=== PATIENT | male | born 1965 | race African-American/Black ===

== ENCOUNTER 2017-03-23 05:12 | Inpatient (IN) | payer SELFPAY ==
[~2017-03-23] VITALS: Ht 188 cm; Wt 103.8 kg
[2017-03-23 07:22] LABS: Basophils # (auto) 0 uL; Basophils % (auto) 0.1 % (0.0-2.0); CONDITION Y; Eosinophils # (auto) 0 uL; Eosinophils % (auto) 0.1 % (0.0-7.0); Hematocrit 43.5 % (41.0-53.0); Hemoglobin 14.7 g/dL (13.5-17.5); Lymphocytes % (auto) 13.7 % (10.0-50.0); Mean Corpuscular Hemoglobin 29.6 pg (28.0-32.0); Mean Corpuscular Hgb Conc. 33.8 g/dL (32.0-36.0); Mean Corpuscular Volume 87.6 fL (80.0-100.0); Mean Platelet Volume 8.9 fL (7.4-10.4); Monocytes # (auto) 0.2 uL; Monocytes % (auto) 2.6 % (0.0-12.0); Neutrophils # (auto) 6.4 uL; Neutrophils % (auto) 83.5 % (37.0-80.0); Platelet Count (auto) 294 10^3/uL (140-450); Red Cell Distribution Width 14.6 % (11.6-16.0); White Blood Cell 7.7 10^3/uL (4.4-10.8)
[2017-03-23 07:40] LABS: INR 0.98 (0.9-1.15); Partial Thromboplastin Time 23.4 sec (22.64-33.71); Prothrombin Time 10.7 sec (9.37-12.3)
[2017-03-23 07:49] LABS: Albumin 4.1 g/dL (3.4-5.0); Calcium 8.9 mg/dL (8.5-10.1)
[2017-03-23 08:09] LABS: Bilirubin, Total 0.5 mg/dL (0.2-1.0); Total Protein 7.9 g/dL (6.4-8.2)
[2017-03-23] MEDS ORDERED: SODIUM CHLORIDE 0.9% 1,000 ML IVB ONE (10:01)
[2017-03-23] MEDS ORDERED: ASPirin 81 mg TAB PO ONE ×2 (10:15→11:00)
[2017-03-23] MEDS ORDERED: NITROGLYCERIN 0.2MG/HR TOPICAL PATCH TD ONE (11:00)
[2017-03-23] MEDS ORDERED: MORPHINE SULF INJ 2 MG/ML SYRINGE 1ML IV PRN (11:00)
[2017-03-23] MEDS ORDERED: LORazepam 0.5 MG TAB PO PRN (11:00)
[2017-03-23] MEDS ORDERED: ENOXAPARIN SOD 80 MG/0.8ML SYRINGE SC SCH (11:00)
[2017-03-23] MEDS ORDERED: TEMAZEPAM 15 MG CAP PO PRN (11:00)
[2017-03-23] MEDS ORDERED: LACTULOSE 20Gm/30ML SOLN PO PRN (11:00)
[2017-03-23] MEDS ORDERED: MORPHINE SULFATE 4 MG/ML SYRG IV PRN (11:00)
[2017-03-23] MEDS ORDERED: PANTOPRAZOLE 40 MG TAB PO ONE (11:00)
[2017-03-23] MEDS ORDERED: HYDROcodone-ACET 5/325MG TAB PO PRN (11:00)
[2017-03-23] MEDS ORDERED: PROMETHAZINE HCL 25 MG/ML 1ML IV PRN (11:00)
[2017-03-23] MEDS ORDERED: NITROGLYCERIN 0.4 MG SL TAB SL PRN (11:00)
[2017-03-23] MEDS ORDERED: ACETAMINOPHEN 500 MG TAB PO PRN (11:00)
[2017-03-23] MEDS: SODIUM CHLORIDE 0.9% 1,000 ML IV SCH ×2 (11:45→18:51)
[2017-03-23] MEDS ORDERED: EPTIFIBATIDE INJ (2MG/ML) 10ML VIAL IV ONE (19:00)
[2017-03-23] MEDS ORDERED: LISINOPRIL 10 MG TAB PO ONE (19:15)
[2017-03-23] MEDS: EPTIFIBATIDE DRIP(0.75MG/ML) 100 ML IV SCH (19:52)
[2017-03-23 21:16] LABS: Urine Bilirubin Negative (Negative); Urine Blood Negative /uL (Negative); Urine Color Yellow (Yellow); Urine Glucose Normal (Normal); Urine Mucus FEW (None Seen); Urine Nitrite Negative (Negative); Urine RBC 4 /hpf (0 - 3); Urine Urobilinogen Normal (Negative); Urine pH 8.5 (5.0-8.0)
[2017-03-23 21:20] LABS: Urine Ketone 1+ (Negative)
[2017-03-23] MEDS: METOPROLOL TARTRATE 25 MG TAB PO SCH (22:00)
[2017-03-23] MEDS: ATORVASTATIN 20 MG TAB PO SCH (22:20)
[2017-03-23] MEDS ORDERED: ENOXAPARIN SOD 100 MG/1 ML SYRINGE SC SCH (23:00)
[2017-03-24] VITALS (73 sets, daily range): BP systolic 88–199; BP diastolic 28–99
[2017-03-24] MEDS: EPTIFIBATIDE DRIP(0.75MG/ML) 100 ML IV SCH ×3 (01:16→22:00)
[2017-03-24] MEDS: SODIUM CHLORIDE 0.9% 1,000 ML IV SCH ×2 (02:49→10:09)
[2017-03-24 04:03] LABS: Cholesterol 214 mg/dL (< 200); HDL Cholesterol 56 mg/dL (40-59); LDL Cholesterol 134 mg/dL (< 100); Triglycerides 170 mg/dL (< 150)
[2017-03-24] MEDS ORDERED: IOHEXOL 350 MG/ML 100ML IJ ONE (07:55)
[2017-03-24] MEDS ORDERED: LIDOCAINE 2%HCL (LOCAL ANESTH.) INJ 20ML MDV ONE (07:55)
[2017-03-24] MEDS ORDERED: fentaNYL CITRATE 100 MCG/2 ML VL ONE (08:49)
[2017-03-24] MEDS ORDERED: MIDAZOLAM HCL 1MG/1ML-2 ML VIAL ONE (08:49)
[2017-03-24] MEDS ORDERED: ANGIOMAX 250 MG VIAL IV ONE (08:49)
[2017-03-24] MEDS ORDERED: SODIUM CHL 0.9% 50 ML ONE (08:50)
[2017-03-24] MEDS: METOPROLOL TARTRATE 25 MG TAB PO SCH ×2 (10:08→22:20)
[2017-03-24] MEDS: ASPirin 81 mg TAB PO SCH (10:08)
[2017-03-24] MEDS: PANTOPRAZOLE 40 MG TAB PO SCH (10:08)
[2017-03-24] MEDS: NITROGLYCERIN 0.2MG/HR TOPICAL PATCH TD SCH (10:09)
[2017-03-24] MEDS: ATORVASTATIN 20 MG TAB PO SCH (22:20)
[2017-03-25] VITALS (60 sets, daily range): BP systolic 73–136; BP diastolic 35–77
[2017-03-25] MEDS: EPTIFIBATIDE DRIP(0.75MG/ML) 100 ML IV SCH (01:40)
[2017-03-25 05:17] LABS: Basophils # (auto) 0 uL; Basophils % (auto) 0.3 % (0.0-2.0); CONDITION Y; Eosinophils # (auto) 0 uL; Hematocrit 38.4 % (41.0-53.0); Lymphocytes # (auto) 1.3 uL; Lymphocytes % (auto) 9.6 % (10.0-50.0); Mean Corpuscular Hemoglobin 29.6 pg (28.0-32.0); Mean Corpuscular Volume 87.3 fL (80.0-100.0); Mean Platelet Volume 9.7 fL (7.4-10.4); Monocytes # (auto) 0.9 uL; Monocytes % (auto) 7.1 % (0.0-12.0); Neutrophils # (auto) 10.9 uL; Platelet Count (auto) 211 10^3/uL (140-450); Red Cell Distribution Width 14.6 % (11.6-16.0); White Blood Cell 13.2 10^3/uL (4.4-10.8)
[2017-03-25 05:33] LABS: Albumin 2.9 g/dL (3.4-5.0); Calcium 7.8 mg/dL (8.5-10.1); Potassium 3.9 mmol/L (3.5-5.1)
[2017-03-25 05:35] LABS: BUN/Creatinine Ratio 13.9; Magnesium 2.2 mg/dL (1.6-2.6)
[2017-03-25 05:38] LABS: Bilirubin, Total 1.2 mg/dL (0.2-1.0); Total Protein 6.6 g/dL (6.4-8.2)
[2017-03-25] MEDS: ASPirin 81 mg TAB PO SCH (09:36)
[2017-03-25] MEDS: PANTOPRAZOLE 40 MG TAB PO SCH (09:36)
[2017-03-25] MEDS: NITROGLYCERIN 0.2MG/HR TOPICAL PATCH TD SCH (09:36)
[2017-03-25] MEDS: METOPROLOL TARTRATE 25 MG TAB PO SCH ×2 (09:36→21:33)
[2017-03-25] MEDS ORDERED: ceFAZolin 1GM 2 GM in D5W 5% 50 ML IV ONE (12:45)
[2017-03-25] MEDS ORDERED: VANCOMYCIN 1GM/250ML D5W 250 ML IV ONE (12:45)
[2017-03-25] MEDS ORDERED: ACCU-CHEK COMFORT CURVE STRIP VI ONE (12:45)
[2017-03-25 15:41] LABS: Base Excess 3.1 mmol/L (-2.0-2.0); Blood 02Sat 90.6 % (96-100); Blood COHb 1.2 % (0.5-1.5); Blood MetHb 0.1 % (0.0-1.5); HCO3 24.6 mmol/L (22-26.0); HHb 9.3 % (0.0-5.0); MODE ROOM AIR; O2Hb 89.4 % (94.0-97.0); PCO2 28.8 mmHg (35.0-45.0); PCO2(T) 28.8 mmHg (35.0-45.0); PO2 54.9 mmHg (80.0-100.0); PO2(T) 54.9 mmHg (80.0-100.0); Sample Type Arterial; pH 7.549 (7.350-7.450)
[2017-03-25 19:48] LABS: Urine Bilirubin Negative (Negative); Urine Blood Negative /uL (Negative); Urine Color Yellow (Yellow); Urine Glucose Normal (Normal); Urine Ketone Negative (Negative); Urine Nitrite Negative (Negative); Urine RBC 1 /hpf (0 - 3); Urine Squamous Epithelial Cell FEW /hpf (<5)
[2017-03-25] MEDS ORDERED: MUPIROCIN 2% OINT 22GM TOP SCH (21:00)
[2017-03-25] MEDS: ATORVASTATIN 20 MG TAB PO SCH (21:33)
[2017-03-25] MEDS ORDERED: ASCORBIC ACID 500 MG TAB PO ONE (22:00)
[2017-03-26] VITALS (27 sets, daily range): BP systolic 85–119; BP diastolic 38–72
[2017-03-26] MEDS ORDERED: CHLORHEXIDINE 4% TOPICAL soln 118ML TOP ONE ×2 (02:00→09:00)
[2017-03-26 04:37] LABS: Basophils # (auto) 0 uL; Basophils % (auto) 0.3 % (0.0-2.0); CONDITION Y; Eosinophils # (auto) 0 uL; Eosinophils % (auto) 0.3 % (0.0-7.0); Hematocrit 36.3 % (41.0-53.0); Hemoglobin 12.4 g/dL (13.5-17.5); Lymphocytes # (auto) 1.3 uL; Lymphocytes % (auto) 12.7 % (10.0-50.0); Mean Corpuscular Hemoglobin 30.3 pg (28.0-32.0); Mean Corpuscular Hgb Conc. 34.3 g/dL (32.0-36.0); Mean Corpuscular Volume 88.4 fL (80.0-100.0); Mean Platelet Volume 9.5 fL (7.4-10.4); Monocytes # (auto) 0.8 uL; Monocytes % (auto) 8.1 % (0.0-12.0); Neutrophils # (auto) 7.8 uL; Neutrophils % (auto) 78.6 % (37.0-80.0); Platelet Count (auto) 186 10^3/uL (140-450); Red Cell Distribution Width 14.4 % (11.6-16.0); White Blood Cell 9.9 10^3/uL (4.4-10.8)
[2017-03-26] MEDS ORDERED: ceFAZolin 1GM 2 GM in D5W 5% 50 ML IV ONE (09:00)
[2017-03-26] MEDS ORDERED: CHLORHEXIDINE 0.12% ORAL rinse 473ML MT ONE ×2 (09:00→12:45)
[2017-03-26] MEDS ORDERED: ACCU-CHEK COMFORT CURVE STRIP VI ONE (09:00)
[2017-03-26] MEDS: NITROGLYCERIN 0.2MG/HR TOPICAL PATCH TD SCH (10:13)
[2017-03-26] MEDS: METOPROLOL TARTRATE 25 MG TAB PO SCH ×2 (10:13→21:35)
[2017-03-26] MEDS: PANTOPRAZOLE 40 MG TAB PO SCH (10:13)
[2017-03-26] MEDS: ASPirin 81 mg TAB PO SCH (10:13)
[2017-03-26 14:10] LABS: Allen Test Yes; Base Excess 0.6 mmol/L (-2.0-2.0); Blood 02Sat 91.4 % (96-100); Blood MetHb 0.2 % (0.0-1.5); HHb 8.5 % (0.0-5.0); MODE ROOM AIR; O2Hb 90.3 % (94.0-97.0); PCO2 30.2 mmHg (35.0-45.0); PCO2(T) 30.2 mmHg (35.0-45.0); PO2 58.4 mmHg (80.0-100.0); PO2(T) 58.4 mmHg (80.0-100.0); Sample Type Arterial; pH 7.499 (7.350-7.450)
[2017-03-26] MEDS: MUPIROCIN 2% OINT 22GM TOP SCH (21:00)
[2017-03-26] MEDS: ATORVASTATIN 20 MG TAB PO SCH (21:35)
[2017-03-26] MEDS ORDERED: ASCORBIC ACID 500 MG TAB PO ONE (22:00)
[2017-03-27] VITALS (54 sets, daily range): BP systolic 30–129; BP diastolic 12–72
[2017-03-27] MEDS ORDERED: CHLORHEXIDINE 0.12% ORAL rinse 473ML MT ONE ×2 (03:43→06:00)
[2017-03-27] MEDS ORDERED: CHLORHEXIDINE 4% TOPICAL soln 118ML TOP ONE ×2 (05:00→05:20)
[2017-03-27] MEDS ORDERED: ACCU-CHEK COMFORT CURVE STRIP VI ONE (07:00)
[2017-03-27] MEDS ORDERED: MIDAZOLAM HCL 1MG/1ML-2 ML VIAL ONE (09:39)
[2017-03-27] MEDS ORDERED: fentaNYL CITRATE 10 ML ONE (09:44)
[2017-03-27] MEDS ORDERED: LIDOCAINE 2%HCL (LOCAL ANESTH.) INJ 20ML MDV ONE (09:49)
[2017-03-27] MEDS ORDERED: ETOMIDATE (2MG/ML) 20ML VIAL IV ONE ×2 (09:49→11:12)
[2017-03-27] MEDS ORDERED: ALBUMIN 25% 300 ML IV ONE (09:55)
[2017-03-27] MEDS ORDERED: ceFAZolin 2 GM in D5W 5% 100 ML IV ONE (10:00)
[2017-03-27] MEDS: MUPIROCIN 2% OINT 22GM TOP SCH (10:00)
[2017-03-27] MEDS ORDERED: VANCOMYCIN 1GM/250ML D5W 250 ML IV ONE (10:00)
[2017-03-27] MEDS ORDERED: PLASMA-LYTE A pH7.4 4,000 ML INJ ONE (10:06)
[2017-03-27] MEDS ORDERED: SODIUM BICARBONATE 8.4% INJ 50ML SYRINGE IV ONE (11:00)
[2017-03-27] MEDS ORDERED: POTASSIUM CHL 2MEQ/ML 20ML IV ONE (11:00)
[2017-03-27] MEDS ORDERED: MANNITOL 20% SOLN 100 gm/500ml BAG IV ONE (11:00)
[2017-03-27] MEDS ORDERED: PHENYLEPHRINE HCL 10 MG/ML VL IV ONE (11:00)
[2017-03-27] MEDS ORDERED: MAGNESIUM SULF 50% 40 MEQ/10 ML VL IV ONE (11:00)
[2017-03-27] MEDS ORDERED: DEXAMETHASONE SODIUM PHOSP 120 MG/30ml VIAL IV ONE (11:00)
[2017-03-27] MEDS ORDERED: AMINOCAPROIC ACID 5 GM in SODIUM CHL 0.9% 250 ML IV ONE (11:00)
[2017-03-27] MEDS ORDERED: LIDOCAINE HCL 100 MG/5ML (2%) SYRG INJ IV ONE (11:00)
[2017-03-27] MEDS ORDERED: PHENYLEPHRINE INJ 20 MG in SODIUM CHL 0.9% 250 ML IV ONE (11:00)
[2017-03-27] MEDS ORDERED: AMINOCAPROIC ACID 10 GM in SODIUM CHL 0.9% 100 ML IV ONE (11:00)
[2017-03-27] MEDS ORDERED: InsuLIN R (HUMAN) 100 UNITS in SODIUM CHL 0.9% 99 ML IV ONE (11:00)
[2017-03-27] MEDS ORDERED: AMINOCAPROIC ACID 5 GM/20 ML VL IV ONE (11:00)
[2017-03-27] MEDS ORDERED: HEPARIN 30000 UNITS in SODIUM CHLORIDE 0.9% 1000 ML IV ONE (11:00)
[2017-03-27] MEDS ORDERED: EPINEPHrine HCL 4 MG in D5W 5% 250 ML IV ONE (11:00)
[2017-03-27] MEDS ORDERED: CALCIUM CHLOR(10%) 100MG/ML 10ML SYRINGE IV ONE (11:00)
[2017-03-27] MEDS ORDERED: VASOPRESSIN 50 UNITS in SODIUM CHL 0.9% 247.5 ML IV ONE (11:00)
[2017-03-27] MEDS ORDERED: ADENOSINE 6 MG/2 ML INJ IV ONE (11:00)
[2017-03-27] MEDS ORDERED: HEPARIN 1,000 UNITS/ml 1ML VIAL ONE (11:22)
[2017-03-27] MEDS ORDERED: PAPAVERINE HCL 60 MG/2 ML 2ML VIAL ONE (11:22)
[2017-03-27] MEDS ORDERED: ceFAZolin 1GM VL ONE (11:22)
[2017-03-27] MEDS ORDERED: NEOMYCIN-BACITRACIN-POLYM 15GM TOP OINT TOP ONE (11:22)
[2017-03-27] MEDS ORDERED: ROCURONIUM 10MG/ML 10ML VIAL IV ONE (12:29)
[2017-03-27] MEDS ORDERED: ePHEDrine SULFATE 50 MG/ML AMP ONE (13:42)
[2017-03-27 13:52] LABS: Base Excess -3.8 mmol/L (-2.0-2.0); Blood COHb 0.2 % (0.5-1.5); Blood MetHb 0.3 % (0.0-1.5); HCO3 19.3 mmol/L (22-26.0); MODE VENT - A/C; O2Hb 98.5 % (94.0-97.0); PCO2 29.6 mmHg (35.0-45.0); PCO2(T) 29.6 mmHg (35.0-45.0); Sample Type Arterial; pH 7.432 (7.350-7.450)
[2017-03-27 13:54] LABS: Base Excess -5.5 mmol/L (-2.0-2.0); Blood 02Sat 98.8 % (96-100); Blood COHb 0.3 % (0.5-1.5); Blood MetHb 0.6 % (0.0-1.5); HCO3 20.3 mmol/L (22-26.0); HHb 1.2 % (0.0-5.0); MODE OXYGENATOR/CPB; O2Hb 97.9 % (94.0-97.0); PCO2 40.7 mmHg (35.0-45.0); PCO2(T) 40.7 mmHg (35.0-45.0); PO2 312.8 mmHg (80.0-100.0); PO2(T) 312.8 mmHg (80.0-100.0); Sample Type Arterial; pH 7.315 (7.350-7.450)
[2017-03-27 13:55] LABS: Base Excess -0.5 mmol/L (-2.0-2.0); Blood 02Sat 98.6 % (96-100); Blood COHb 0.3 % (0.5-1.5); Blood MetHb 0.5 % (0.0-1.5); HCO3 22.9 mmol/L (22-26.0); HHb 1.4 % (0.0-5.0); MODE OXYGENATOR/CPB; O2Hb 97.8 % (94.0-97.0); PCO2 32.8 mmHg (35.0-45.0); PCO2(T) 32.8 mmHg (35.0-45.0); PO2 306.5 mmHg (80.0-100.0); PO2(T) 306.5 mmHg (80.0-100.0); Sample Type Arterial; pH 7.461 (7.350-7.450)
[2017-03-27 13:56] LABS: Blood 02Sat 98.5 % (96-100); Blood COHb 0.3 % (0.5-1.5); Blood MetHb 0.4 % (0.0-1.5); HCO3 21.3 mmol/L (22-26.0); HHb 1.5 % (0.0-5.0); MODE OXYGENATOR/CPB; O2Hb 97.8 % (94.0-97.0); PCO2 39.5 mmHg (35.0-45.0); PCO2(T) 39.5 mmHg (35.0-45.0); PO2 190.8 mmHg (80.0-100.0); PO2(T) 190.8 mmHg (80.0-100.0); Sample Type Arterial; pH 7.349 (7.350-7.450)
[2017-03-27 13:58] LABS: Base Excess 0.4 mmol/L (-2.0-2.0); Blood 02Sat 98.7 % (96-100); Blood COHb 0.1 % (0.5-1.5); Blood MetHb 0.5 % (0.0-1.5); HCO3 24.3 mmol/L (22-26.0); HHb 1.3 % (0.0-5.0); MODE VENT - A/C; O2Hb 98.1 % (94.0-97.0); PCO2 36.2 mmHg (35.0-45.0); PCO2(T) 36.2 mmHg (35.0-45.0); PO2 201.7 mmHg (80.0-100.0); PO2(T) 201.7 mmHg (80.0-100.0); Sample Type Arterial; pH 7.444 (7.350-7.450)
[2017-03-27] MEDS ORDERED: LIDOCAINE 2% JELLY 11ml (GLYDO) ONE ×2 (14:23→14:33)
[2017-03-27] MEDS ORDERED: PHENYLEPHRINE IV 250 ML IV SCH (14:42)
[2017-03-27] MEDS ORDERED: NOREPINEPHRINE BITARTRATE 250 ML IV SCH (14:42)
[2017-03-27] MEDS: PROPOFOL 100 ML IV SCH ×3 (14:42→19:34)
[2017-03-27] MEDS: SODIUM CHLORIDE 0.9% 500 ML IV SCH (14:42)
[2017-03-27] MEDS ORDERED: PROPOFOL 100 ML IV SCH (14:42)
[2017-03-27] MEDS ORDERED: NITROGLYCERIN 50MG/250ML 250 ML IV SCH (14:42)
[2017-03-27] MEDS ORDERED: VASOPRESSIN 50 UNITS in SODIUM CHL 0.9% 247.5 ML IV SCH (14:42)
[2017-03-27] MEDS: NICARDIPINE 25MG/250ML BAG KIT 250 ML IV SCH ×2 (14:42→19:42)
[2017-03-27] MEDS: MILRINONE 20MG/100ML 100 ML IV SCH ×2 (14:42→23:40)
[2017-03-27] MEDS ORDERED: MORPHINE SULF INJ 2 MG/ML SYRINGE 1ML IV PRN (14:45)
[2017-03-27] MEDS ORDERED: ALBUMIN 5% 250 ML IV PRN (14:45)
[2017-03-27] MEDS ORDERED: MAGNESIUM SULFATE 1GM/100ML 100 ML IV PRN (14:45)
[2017-03-27] MEDS ORDERED: IPRATROPIUM BROM 0.5 MG/2.5ML INH SOL NEB PRN (14:45)
[2017-03-27] MEDS ORDERED: SODIUM BICARBONATE 8.4% INJ 50ML SYRINGE IV PRN (14:45)
[2017-03-27] MEDS ORDERED: DEXTROSE (50%) 50ML SYRG IV PRN (14:45)
[2017-03-27] MEDS ORDERED: AMIODARONE HCL 150 MG in D5W 5% 100 ML IV ONE (14:45)
[2017-03-27] MEDS ORDERED: MORPHINE SULFATE 4 MG/ML SYRG IV PRN ×2 (14:45)
[2017-03-27] MEDS ORDERED: METOCLOPRAMIDE HCL 5MG/ml INJ 2ml VIAL IV PRN (14:45)
[2017-03-27] MEDS ORDERED: ONDANSETRON HCL 4 MG/2 ML VIAL IV PRN (14:45)
[2017-03-27] MEDS ORDERED: AMIODARONE HCL 900 MG in DEXTROSE 500 ML IV SCH (14:52)
[2017-03-27] MEDS: ACCU-CHEK COMFORT CURVE STRIP VI SCH ×9 (15:00→23:00)
[2017-03-27] MEDS ORDERED: INSULIN DRIP 100 UNIT/100ML 100 ML IV SCH (15:30)
[2017-03-27 15:33] LABS: Base Excess -0.1 mmol/L (-2.0-2.0); Blood COHb 0.1 % (0.5-1.5); HCO3 24.2 mmol/L (22-26.0); MODE VENT - SIMV; O2Hb 95.9 % (94.0-97.0); PCO2 38.4 mmHg (35.0-45.0); PCO2(T) 38.4 mmHg (35.0-45.0); PO2 94.7 mmHg (80.0-100.0); PO2(T) 94.7 mmHg (80.0-100.0); Pressure Support 8; Sample Type Arterial; pH 7.418 (7.350-7.450)
[2017-03-27 15:42] LABS: Blood 02Sat 72.3 % (96-100); MODE VENT - SIMV; Pressure Support 8; Sample Type Venous; Venous Blood COHb 0.7 % (0.5-1.5); Venous Blood MetHb 0.1 % (0.0-1.5); Venous Blood O2Hb 71.7 % (94.0-97.0); Venous Blood PO2 39.3 mmHg (38.0-42.0); Venous Blood PO2(T) 39.3 mmHg (38.0-42.0); Venous Deoxyhemoglobin 27.5 % (0.0-5.0)
[2017-03-27 15:46] LABS: Basophils # (auto) 0 uL; CONDITION Y; Eosinophils # (auto) 0 uL; Eosinophils % (auto) 0.3 % (0.0-7.0); Hematocrit 30.3 % (41.0-53.0); Hemoglobin 10.4 g/dL (13.5-17.5); Lymphocytes # (auto) 0.6 uL; Lymphocytes % (auto) 5.8 % (10.0-50.0); Mean Corpuscular Hemoglobin 30.1 pg (28.0-32.0); Mean Corpuscular Hgb Conc. 34.4 g/dL (32.0-36.0); Mean Corpuscular Volume 87.8 fL (80.0-100.0); Mean Platelet Volume 9.6 fL (7.4-10.4); Monocytes # (auto) 0.5 uL; Monocytes % (auto) 4.5 % (0.0-12.0); Neutrophils # (auto) 9.1 uL; Neutrophils % (auto) 89.4 % (37.0-80.0); Platelet Count (auto) 163 10^3/uL (140-450); Red Cell Distribution Width 14.4 % (11.6-16.0); White Blood Cell 10.1 10^3/uL (4.4-10.8)
[2017-03-27 15:56] LABS: INR 1.03 (0.9-1.15); Prothrombin Time 11.2 sec (9.37-12.3)
[2017-03-27] MEDS ORDERED: PANTOPRAZOLE SODIUM 40 MG/10 ML VIAL IV SCH (16:00)
[2017-03-27 16:06] LABS: Albumin 3.7 g/dL (3.4-5.0); BUN/Creatinine Ratio 14.1; Bilirubin, Total 1.2 mg/dL (0.2-1.0); Calcium 8.3 mg/dL (8.5-10.1); Magnesium 3.7 mg/dL (1.6-2.6); Phosphorus 2.2 mg/dL (2.5-4.90); Potassium 4.3 mmol/L (3.5-5.1); Total Protein 6.8 g/dL (6.4-8.2)
[2017-03-27] MEDS ORDERED: fentaNYL Drip 2500mCg/250mlNS 250 ML IV ONE (16:37)
[2017-03-27] MEDS ORDERED: fentaNYL Drip 2500mCg/250mlNS 250 ML IV SCH (17:00)
[2017-03-27] MEDS ORDERED: MIDAZOLAM DRIP 50 mg/50mL 50 ML IV ONE (17:04)
[2017-03-27] MEDS ORDERED: CALCIUM GLUC 4.65 MEQ/10ML 4.65 MEQ in SODIUM CHL 0.9% 50 ML IV ONE (17:25)
[2017-03-27] MEDS ORDERED: MIDAZOLAM DRIP 50 mg/50mL 50 ML IV SCH (17:35)
[2017-03-27] MEDS: D5W/SOD CHL 0.45% 1,000 ML IV SCH ×2 (17:39→21:59)
[2017-03-27] MEDS: ceFAZolin 2 GM in D5W 5% 100 ML IV SCH (17:39)
[2017-03-27] MEDS ORDERED: SODIUM PHOSPHATES 20 MEQ in SODIUM CHL 0.9% 100 ML IV ONE (17:55)
[2017-03-27] MEDS: POTASSIUM CHL 20MEQ/100ML 100 ML IV PRN ×2 (20:45→21:34)
[2017-03-27] MEDS: AMIODARONE HCL 900 MG in DEXTROSE 500 ML IV SCH (20:52)
[2017-03-27] MEDS: CHLORHEXIDINE 0.12% ORAL rinse 473ML MT SCH (21:39)
[2017-03-27] MEDS: VANCOMYCIN 1GM/250ML D5W 250 ML IV SCH (21:39)
[2017-03-27 23:34] LABS: Basophils # (auto) 0 uL; Basophils % (auto) 0.2 % (0.0-2.0); CONDITION Y; Eosinophils # (auto) 0 uL; Hematocrit 32.4 % (41.0-53.0); Lymphocytes # (auto) 0.3 uL; Lymphocytes % (auto) 3.6 % (10.0-50.0); Mean Corpuscular Hemoglobin 29.8 pg (28.0-32.0); Mean Corpuscular Hgb Conc. 33.9 g/dL (32.0-36.0); Mean Corpuscular Volume 87.9 fL (80.0-100.0); Mean Platelet Volume 9.4 fL (7.4-10.4); Monocytes # (auto) 0.2 uL; Monocytes % (auto) 2.4 % (0.0-12.0); Neutrophils # (auto) 8.5 uL; Neutrophils % (auto) 93.8 % (37.0-80.0); Platelet Count (auto) 237 10^3/uL (140-450); Red Cell Distribution Width 14.6 % (11.6-16.0); White Blood Cell 9.1 10^3/uL (4.4-10.8)
[2017-03-27 23:50] LABS: BUN/Creatinine Ratio 13.4; Calcium 8.3 mg/dL (8.5-10.1); Magnesium 3.3 mg/dL (1.6-2.6); Phosphorus 3.2 mg/dL (2.5-4.90); Potassium 4.4 mmol/L (3.5-5.1)
[2017-03-28] VITALS (77 sets, daily range): BP systolic 25–146; BP diastolic 7–76
[2017-03-28] MEDS: ceFAZolin 2 GM in D5W 5% 100 ML IV SCH ×3 (00:03→16:11)
[2017-03-28] MEDS: D5W/SOD CHL 0.45% 1,000 ML IV SCH ×2 (00:42→05:02)
[2017-03-28] MEDS: NICARDIPINE 25MG/250ML BAG KIT 250 ML IV SCH ×5 (00:42→20:42)
[2017-03-28] MEDS: ACCU-CHEK COMFORT CURVE STRIP VI SCH ×13 (01:00→22:12)
[2017-03-28 04:56] LABS: Base Excess -0.3 mmol/L (-2.0-2.0); Blood 02Sat 93.7 % (96-100); Blood COHb 0.3 % (0.5-1.5); Blood MetHb 0.3 % (0.0-1.5); HCO3 23.3 mmol/L (22-26.0); HHb 6.3 % (0.0-5.0); MODE VENT - SIMV; O2Hb 93.1 % (94.0-97.0); PCO2 34.3 mmHg (35.0-45.0); PCO2(T) 34.3 mmHg (35.0-45.0); PO2 72.1 mmHg (80.0-100.0); PO2(T) 72.1 mmHg (80.0-100.0); Pressure Support 8; Sample Type Arterial
[2017-03-28 08:24] LABS: DEFINITIVE SEE PRINTOUT; Hematocrit 30.2 % (41.0-53.0); Hemoglobin 10.1 g/dL (13.5-17.5); Mean Corpuscular Hemoglobin 29.5 pg (28.0-32.0); Mean Corpuscular Hgb Conc. 33.3 g/dL (32.0-36.0); Mean Corpuscular Volume 88.5 fL (80.0-100.0); Mean Platelet Volume 9.7 fL (7.4-10.4); Platelet Count (auto) 159 10^3/uL (140-450); Red Cell Distribution Width 13.7 % (11.6-16.0); SUSPECT SEE PRINTOUT; White Blood Cell 10.9 10^3/uL (4.4-10.8)
[2017-03-28 08:35] LABS: Metamyelocytes % 0; Myelocytes % 0; Promyelocytes % 0; Reactive Lymphocytes 0
[2017-03-28 08:44] LABS: BUN/Creatinine Ratio 17.1; Calcium 7.9 mg/dL (8.5-10.1); Phosphorus 4.1 mg/dL (2.5-4.90); Potassium 4.3 mmol/L (3.5-5.1)
[2017-03-28 08:56] LABS: Platelet Estimate Adequate
[2017-03-28 08:57] LABS: RBC Morphology Normal
[2017-03-28] MEDS ORDERED: METOCLOPRAMIDE HCL 5MG/ml INJ 2ml VIAL IV PRN (10:15)
[2017-03-28] MEDS ORDERED: SENNA 8.6 MG TAB PO PRN (10:15)
[2017-03-28] MEDS ORDERED: ONDANSETRON HCL 4 MG/2 ML VIAL IV PRN (10:15)
[2017-03-28] MEDS ORDERED: MORPHINE SULF INJ 2 MG/ML SYRINGE 1ML IV PRN (10:15)
[2017-03-28] MEDS ORDERED: DEXTROSE (50%) 50ML SYRG IV PRN (10:15)
[2017-03-28 10:16] LABS: Base Excess -2.1 mmol/L (-2.0-2.0); Blood 02Sat 94.6 % (96-100); Blood COHb 0.4 % (0.5-1.5); HCO3 20.4 mmol/L (22-26.0); HHb 5.4 % (0.0-5.0); MODE VENT - CPAP; O2Hb 94.2 % (94.0-97.0); PCO2 28.2 mmHg (35.0-45.0); PCO2(T) 28.2 mmHg (35.0-45.0); PO2 74.3 mmHg (80.0-100.0); PO2(T) 74.3 mmHg (80.0-100.0); Pressure Support 8; Sample Type Arterial; pH 7.478 (7.350-7.450)
[2017-03-28] MEDS ORDERED: CALCIUM GLUC 4.65 MEQ/10ML 4.65 MEQ in SODIUM CHL 0.9% 50 ML IV ONE (10:30)
[2017-03-28] MEDS ORDERED: ASPirin-EC 81 mg tab PO ONE (10:30)
[2017-03-28] MEDS ORDERED: PANTOPRAZOLE SODIUM 40 MG/10 ML VIAL IV ONE (10:34)
[2017-03-28] MEDS: VANCOMYCIN 1GM/250ML D5W 250 ML IV SCH ×2 (10:43→21:45)
[2017-03-28] MEDS ORDERED: METOPROLOL TARTRATE 25 MG TAB PO ONE (10:45)
[2017-03-28] MEDS ORDERED: FUROSEMIDE 20 MG/2 ML VIAL IV PRN (10:45)
[2017-03-28] MEDS ORDERED: ZOLPIDEM TARTRATE 5 MG TAB PO PRN (10:45)
[2017-03-28] MEDS ORDERED: hydrALAZINE HCL 20 MG/ML VL IV PRN (11:30)
[2017-03-28] MEDS ORDERED: NITROGLYCERIN 0.4MG/HR TOPICAL PATCH TD ONE (11:30)
[2017-03-28] MEDS: SODIUM CHLORIDE 0.9% 1,000 ML IV SCH (11:30)
[2017-03-28] MEDS ORDERED: Boost Glucose Control 8 Ounces PO SCH (12:00)
[2017-03-28] MEDS: CHLORHEXIDINE 0.12% ORAL rinse 473ML MT SCH ×2 (12:00→21:43)
[2017-03-28] MEDS: MORPHINE SULF INJ 2 MG/ML SYRINGE 1ML IV PRN ×3 (12:30→20:28)
[2017-03-28] MEDS: IPRATROPIUM BROM 0.5 MG/2.5ML INH SOL NEB SCH ×2 (14:11→18:26)
[2017-03-28] MEDS: InsuLIN REG 1unit/0.01ml Soln (100units/ml) SC SCH ×3 (14:30→22:04)
[2017-03-28] MEDS: SODIUM CHLORIDE 0.9% 500 ML IV SCH (14:42)
[2017-03-28] MEDS ORDERED: PROPRANOLOL HCL 1 MG/ML VIAL IV PRN (16:00)
[2017-03-28] MEDS ORDERED: ALBUMIN 25% 50 ML IV PRN (16:00)
[2017-03-28 16:18] LABS: CONDITION Y; Hematocrit 29.4 % (41.0-53.0); Hemoglobin 10.2 g/dL (13.5-17.5); Mean Corpuscular Hemoglobin 30.3 pg (28.0-32.0); Mean Corpuscular Hgb Conc. 34.6 g/dL (32.0-36.0); Mean Corpuscular Volume 87.5 fL (80.0-100.0); Mean Platelet Volume 9.5 fL (7.4-10.4); Platelet Count (auto) 206 10^3/uL (140-450); Red Cell Distribution Width 14.9 % (11.6-16.0); SUSPECT SEE PRINTOUT; White Blood Cell 12.9 10^3/uL (4.4-10.8)
[2017-03-28 16:24] LABS: Metamyelocytes % 0; Myelocytes % 0; Promyelocytes % 0; Reactive Lymphocytes 0
[2017-03-28 16:42] LABS: BUN/Creatinine Ratio 16.5; Calcium 8.4 mg/dL (8.5-10.1); Magnesium 2.9 mg/dL (1.6-2.6); Phosphorus 3.1 mg/dL (2.5-4.90); Potassium 4.1 mmol/L (3.5-5.1)
[2017-03-28] MEDS: FUROSEMIDE 40 MG TAB PO SCH (18:17)
[2017-03-28] MEDS: ACETYLCYSTEINE 10 %(100MG/ML) SOL 4ML NEB SCH (18:26)
[2017-03-28 18:37] LABS: Platelet Estimate Adequate
[2017-03-28] MEDS: HYDROcodone-ACET 7.5/325MG TAB PO PRN (20:28)
[2017-03-28] MEDS: AMIODARONE HCL 900 MG in DEXTROSE 500 ML IV SCH (20:52)
[2017-03-28] MEDS: METOPROLOL TARTRATE 25 MG TAB PO SCH (21:43)
[2017-03-28] MEDS: ASCORBIC ACID 500 MG TAB PO SCH (21:44)
[2017-03-28] MEDS: ATORVASTATIN 20 MG TAB PO SCH (21:44)
[2017-03-28] MEDS: DOCUSATE SOD 100 MG CAP PO SCH (21:44)
[2017-03-28] MEDS ORDERED: METOPROLOL TARTRATE 25 MG TAB PO SCH (22:00)
[2017-03-29] VITALS (27 sets, daily range): BP systolic 96–140; BP diastolic 45–82
[2017-03-29] MEDS: ceFAZolin 2 GM in D5W 5% 100 ML IV SCH ×2 (00:04→08:30)
[2017-03-29] MEDS: NICARDIPINE 25MG/250ML BAG KIT 250 ML IV SCH ×5 (01:42→21:42)
[2017-03-29] MEDS: InsuLIN REG 1unit/0.01ml Soln (100units/ml) SC SCH ×5 (01:42→22:00)
[2017-03-29] MEDS: ACCU-CHEK COMFORT CURVE STRIP VI SCH ×5 (01:42→22:00)
[2017-03-29 03:46] LABS: Basophils # (auto) 0 uL; CONDITION Y; Eosinophils # (auto) 0 uL; Eosinophils % (auto) 0.1 % (0.0-7.0); Hematocrit 29.6 % (41.0-53.0); Lymphocytes # (auto) 1.1 uL; Lymphocytes % (auto) 9.4 % (10.0-50.0); Mean Corpuscular Hemoglobin 29.9 pg (28.0-32.0); Mean Corpuscular Hgb Conc. 33.7 g/dL (32.0-36.0); Mean Corpuscular Volume 88.8 fL (80.0-100.0); Mean Platelet Volume 9.4 fL (7.4-10.4); Monocytes # (auto) 0.8 uL; Monocytes % (auto) 6.9 % (0.0-12.0); Neutrophils # (auto) 9.7 uL; Neutrophils % (auto) 83.6 % (37.0-80.0); Platelet Count (auto) 214 10^3/uL (140-450); Red Cell Distribution Width 14.6 % (11.6-16.0); White Blood Cell 11.6 10^3/uL (4.4-10.8)
[2017-03-29 04:06] LABS: BUN/Creatinine Ratio 17.5; Calcium 7.6 mg/dL (8.5-10.1); Magnesium 2.2 mg/dL (1.6-2.6); Potassium 3.9 mmol/L (3.5-5.1)
[2017-03-29 04:10] LABS: Bilirubin, Total 0.4 mg/dL (0.2-1.0); Total Protein 6.5 g/dL (6.4-8.2)
[2017-03-29] MEDS: FUROSEMIDE 40 MG TAB PO SCH ×2 (06:16→17:58)
[2017-03-29] MEDS: IPRATROPIUM BROM 0.5 MG/2.5ML INH SOL NEB SCH ×6 (06:19→21:57)
[2017-03-29] MEDS: ACETYLCYSTEINE 10 %(100MG/ML) SOL 4ML NEB SCH ×2 (06:19→18:43)
[2017-03-29] MEDS: SODIUM CHLORIDE 0.9% 1,000 ML IV SCH ×2 (06:30→10:30)
[2017-03-29] MEDS: HYDROcodone-ACET 7.5/325MG TAB PO PRN (06:30)
[2017-03-29] MEDS ORDERED: CALCIUM GLUC 4.65 MEQ/10ML 4.65 MEQ in SODIUM CHL 0.9% 50 ML IV ONE (06:30)
[2017-03-29] MEDS: POTASSIUM CHL 20MEQ/100ML 100 ML IV PRN ×2 (06:32→08:22)
[2017-03-29] MEDS ORDERED: fentaNYL CITRATE 100 MCG/2 ML VL IV PRN (08:45)
[2017-03-29] MEDS ORDERED: DEXTROSE (50%) 50ML SYRG IV PRN (09:00)
[2017-03-29] MEDS ORDERED: IBUPROFEN 400 MG TAB PO PRN (09:00)
[2017-03-29] MEDS ORDERED: POTASSIUM CHL 20 Meq TABLET PO SCH (10:00)
[2017-03-29] MEDS: CHLORHEXIDINE 0.12% ORAL rinse 473ML MT SCH ×2 (10:00→22:00)
[2017-03-29] MEDS: AMIODARONE HCL 900 MG in DEXTROSE 500 ML IV SCH (10:00)
[2017-03-29] MEDS ORDERED: ENOXAPARIN SOD 40 MG/0.4 ML SYRINGE SC SCH (10:00)
[2017-03-29] MEDS: POTASSIUM CHL 10 Meq TABLET PO SCH (10:24)
[2017-03-29] MEDS: ASPirin 81 mg TAB PO SCH (10:24)
[2017-03-29] MEDS: ASCORBIC ACID 500 MG TAB PO SCH ×2 (10:24→21:52)
[2017-03-29] MEDS: PANTOPRAZOLE 40 MG TAB PO SCH (10:24)
[2017-03-29] MEDS: DOCUSATE SOD 100 MG CAP PO SCH ×2 (10:24→21:52)
[2017-03-29] MEDS: METOPROLOL TARTRATE 25 MG TAB PO SCH ×2 (10:25→22:00)
[2017-03-29] MEDS: MORPHINE SULF INJ 2 MG/ML SYRINGE 1ML IV PRN (10:26)
[2017-03-29] MEDS: IBUPROFEN 400 MG TAB PO SCH ×2 (10:30→21:52)
[2017-03-29] MEDS: NITROGLYCERIN 0.4MG/HR TOPICAL PATCH TD SCH (10:30)
[2017-03-29] MEDS: VANCOMYCIN 1GM/250ML D5W 250 ML IV SCH (11:00)
[2017-03-29] MEDS ORDERED: KETOROLAC TROMETH 30 MG/ML 1ML VIAL IV ONE (12:00)
[2017-03-29] MEDS ORDERED: MAGNESIUM SULFATE 1GM/100ML 100 ML IV ONE (12:45)
[2017-03-29] MEDS ORDERED: METOPROLOL TARTRATE 25 MG TAB PO ONE (13:00)
[2017-03-29] MEDS: SODIUM CHLORIDE 0.9% 500 ML IV SCH (14:42)
[2017-03-29] MEDS: HYDROcodone-ACET 10/325MG TAB PO PRN ×2 (15:27→21:30)
[2017-03-29] MEDS ORDERED: POTASSIUM CHL 20MEQ/100ML 100 ML IV PRN (21:15)
[2017-03-29] MEDS: AMIODARONE HCL 200 MG TAB PO SCH (21:47)
[2017-03-29] MEDS: ATORVASTATIN 20 MG TAB PO SCH (21:52)
[2017-03-30] VITALS (48 sets, daily range): BP systolic 96–131; BP diastolic 44–79
[2017-03-30] MEDS: NICARDIPINE 25MG/250ML BAG KIT 250 ML IV SCH ×5 (02:42→22:42)
[2017-03-30 06:16] LABS: Basophils # (auto) 0.1 uL; Basophils % (auto) 0.7 % (0.0-2.0); CONDITION Y; Eosinophils # (auto) 0.1 uL; Eosinophils % (auto) 1.3 % (0.0-7.0); Hematocrit 30.3 % (41.0-53.0); Hemoglobin 10.2 g/dL (13.5-17.5); Lymphocytes # (auto) 1.2 uL; Lymphocytes % (auto) 13.8 % (10.0-50.0); Mean Corpuscular Hemoglobin 29.9 pg (28.0-32.0); Mean Corpuscular Hgb Conc. 33.6 g/dL (32.0-36.0); Mean Platelet Volume 10.1 fL (7.4-10.4); Monocytes # (auto) 0.6 uL; Monocytes % (auto) 6.9 % (0.0-12.0); Neutrophils # (auto) 6.9 uL; Neutrophils % (auto) 77.3 % (37.0-80.0); Platelet Count (auto) 230 10^3/uL (140-450); Red Cell Distribution Width 14.5 % (11.6-16.0)
[2017-03-30] MEDS: IPRATROPIUM BROM 0.5 MG/2.5ML INH SOL NEB SCH ×4 (06:25→22:11)
[2017-03-30] MEDS: ACETYLCYSTEINE 10 %(100MG/ML) SOL 4ML NEB SCH ×2 (06:25→18:09)
[2017-03-30 06:37] LABS: Albumin 2.6 g/dL (3.4-5.0); Calcium 7.7 mg/dL (8.5-10.1); Magnesium 2.3 mg/dL (1.6-2.6); Potassium 4.5 mmol/L (3.5-5.1)
[2017-03-30 06:41] LABS: BUN/Creatinine Ratio 20.4
[2017-03-30 06:44] LABS: Bilirubin, Total 0.7 mg/dL (0.2-1.0); Total Protein 6.3 g/dL (6.4-8.2)
[2017-03-30] MEDS: FUROSEMIDE 40 MG TAB PO SCH ×2 (07:00→17:37)
[2017-03-30] MEDS: HYDROcodone-ACET 10/325MG TAB PO PRN ×2 (07:02→16:02)
[2017-03-30] MEDS: ACCU-CHEK COMFORT CURVE STRIP VI SCH ×4 (07:45→21:38)
[2017-03-30] MEDS ORDERED: LIDOCAINE 2% JELLY 11ml (GLYDO) ONE (08:04)
[2017-03-30] MEDS ORDERED: ceFAZolin 1GM/50ML D5W 50 ML IV ONE (08:20)
[2017-03-30] MEDS ORDERED: MIDAZOLAM HCL 1MG/1ML-2 ML VIAL ONE (08:23)
[2017-03-30] MEDS ORDERED: fentaNYL CITRATE 100 MCG/2 ML VL ONE (08:23)
[2017-03-30] MEDS ORDERED: SUCCINYLCHOLINE CHLORIDE 20 MG/ML 10ML VIAL IV ONE (08:39)
[2017-03-30] MEDS: FERROUS SULFATE 325 MG TAB PO SCH ×2 (09:00→17:37)
[2017-03-30] MEDS: NITROGLYCERIN 0.4MG/HR TOPICAL PATCH TD SCH (10:13)
[2017-03-30] MEDS: PANTOPRAZOLE 40 MG TAB PO SCH (10:13)
[2017-03-30] MEDS: ASCORBIC ACID 500 MG TAB PO SCH ×2 (10:13→21:30)
[2017-03-30] MEDS: ASPirin 81 mg TAB PO SCH (10:14)
[2017-03-30] MEDS: AMIODARONE HCL 200 MG TAB PO SCH ×2 (10:14→21:31)
[2017-03-30] MEDS: CHLORHEXIDINE 0.12% ORAL rinse 473ML MT SCH ×2 (10:14→22:00)
[2017-03-30] MEDS: METOPROLOL TARTRATE 25 MG TAB PO SCH ×2 (10:15→21:31)
[2017-03-30] MEDS: DOCUSATE SOD 100 MG CAP PO SCH ×2 (10:15→21:30)
[2017-03-30] MEDS: POTASSIUM CHL 10 Meq TABLET PO SCH (10:15)
[2017-03-30] MEDS ORDERED: ENOXAPARIN SOD 40 MG/0.4 ML SYRINGE SC ONE (10:15)
[2017-03-30] MEDS: InsuLIN REG 1unit/0.01ml Soln (100units/ml) SC SCH ×4 (10:26→21:39)
[2017-03-30] MEDS: SODIUM CHLORIDE 0.9% 1,000 ML IV SCH (11:06)
[2017-03-30] MEDS ORDERED: CALCIUM GLUC 4.65meq/50ml D5AE 50 ML IV ONE (11:30)
[2017-03-30] MEDS: IBUPROFEN 400 MG TAB PO SCH ×2 (12:11→21:56)
[2017-03-30] MEDS: AMIODARONE HCL 900 MG in DEXTROSE 500 ML IV SCH (12:38)
[2017-03-30] MEDS: SODIUM CHLORIDE 0.9% 500 ML IV SCH (14:42)
[2017-03-30] MEDS: Boost Glucose Control 8 Ounces PO SCH (19:00)
[2017-03-30] MEDS: ATORVASTATIN 20 MG TAB PO SCH (21:30)
[2017-03-30] MEDS ORDERED: IBUPROFEN 400 MG TAB PO ONE (21:48)
[2017-03-31] VITALS (53 sets, daily range): BP systolic 88–151; BP diastolic 38–89
[2017-03-31] MEDS: NICARDIPINE 25MG/250ML BAG KIT 250 ML IV SCH ×5 (03:42→23:42)
[2017-03-31 03:43] LABS: Basophils # (auto) 0.1 uL; Basophils % (auto) 0.9 % (0.0-2.0); CONDITION Y; Eosinophils # (auto) 0.1 uL; Eosinophils % (auto) 1.6 % (0.0-7.0); Hemoglobin 9.8 g/dL (13.5-17.5); Lymphocytes # (auto) 1.3 uL; Lymphocytes % (auto) 16.5 % (10.0-50.0); Mean Corpuscular Hemoglobin 29.9 pg (28.0-32.0); Mean Corpuscular Hgb Conc. 33.8 g/dL (32.0-36.0); Mean Corpuscular Volume 88.3 fL (80.0-100.0); Mean Platelet Volume 9.2 fL (7.4-10.4); Monocytes # (auto) 0.5 uL; Monocytes % (auto) 6.5 % (0.0-12.0); Neutrophils # (auto) 6.1 uL; Neutrophils % (auto) 74.5 % (37.0-80.0); Platelet Count (auto) 254 10^3/uL (140-450); Red Cell Distribution Width 14.4 % (11.6-16.0); White Blood Cell 8.1 10^3/uL (4.4-10.8)
[2017-03-31 04:08] LABS: Albumin 2.4 g/dL (3.4-5.0); BUN/Creatinine Ratio 23.7; Calcium 7.7 mg/dL (8.5-10.1); Magnesium 2.1 mg/dL (1.6-2.6); Potassium 4.2 mmol/L (3.5-5.1)
[2017-03-31 04:11] LABS: Bilirubin, Total 0.5 mg/dL (0.2-1.0); Total Protein 6.2 g/dL (6.4-8.2)
[2017-03-31] MEDS ORDERED: CALCIUM GLUC 4.65meq/50ml D5AE 50 ML IV ONE (05:15)
[2017-03-31] MEDS ORDERED: CALCIUM GLUC 4.65 MEQ/10ML 10 ML IV ONE (05:33)
[2017-03-31] MEDS: FUROSEMIDE 40 MG TAB PO SCH ×2 (05:52→18:40)
[2017-03-31] MEDS: ACCU-CHEK COMFORT CURVE STRIP VI SCH ×4 (07:00→22:02)
[2017-03-31] MEDS: InsuLIN REG 1unit/0.01ml Soln (100units/ml) SC SCH ×4 (07:00→22:00)
[2017-03-31] MEDS: IPRATROPIUM BROM 0.5 MG/2.5ML INH SOL NEB SCH ×3 (07:43→18:46)
[2017-03-31] MEDS: ACETYLCYSTEINE 10 %(100MG/ML) SOL 4ML NEB SCH ×2 (07:43→18:47)
[2017-03-31] MEDS: FERROUS SULFATE 325 MG TAB PO SCH ×2 (08:00→18:00)
[2017-03-31] MEDS: Boost Glucose Control 8 Ounces PO SCH ×3 (08:00→18:00)
[2017-03-31] MEDS: ENOXAPARIN SOD 40 MG/0.4 ML SYRINGE SC SCH (10:08)
[2017-03-31] MEDS: NITROGLYCERIN 0.4MG/HR TOPICAL PATCH TD SCH (10:08)
[2017-03-31] MEDS: ASPirin 81 mg TAB PO SCH (10:09)
[2017-03-31] MEDS: POTASSIUM CHL 10 Meq TABLET PO SCH (10:09)
[2017-03-31] MEDS: AMIODARONE HCL 200 MG TAB PO SCH ×2 (10:09→22:01)
[2017-03-31] MEDS: IBUPROFEN 400 MG TAB PO SCH ×2 (10:09→22:02)
[2017-03-31] MEDS: PANTOPRAZOLE 40 MG TAB PO SCH (10:10)
[2017-03-31] MEDS: DOCUSATE SOD 100 MG CAP PO SCH ×2 (10:10→22:01)
[2017-03-31] MEDS: METOPROLOL TARTRATE 25 MG TAB PO SCH ×2 (10:10→22:00)
[2017-03-31] MEDS: ASCORBIC ACID 500 MG TAB PO SCH ×2 (10:10→22:01)
[2017-03-31] MEDS: CHLORHEXIDINE 0.12% ORAL rinse 473ML MT SCH ×2 (10:18→22:00)
[2017-03-31] MEDS: SODIUM CHLORIDE 0.9% 1,000 ML IV SCH (10:30)
[2017-03-31] MEDS ORDERED: FURO40TA4 PO (11:57)
[2017-03-31] MEDS ORDERED: ATOR20TA50 PO (11:57)
[2017-03-31] MEDS ORDERED: ASPI81CH43 PO (11:57)
[2017-03-31] MEDS ORDERED: AMI200T PO (11:57)
[2017-03-31] MEDS ORDERED: DOCU100C8 PO (11:57)
[2017-03-31] MEDS ORDERED: POTA-167 PO (11:57)
[2017-03-31] MEDS ORDERED: MET25T PO (11:57)
[2017-03-31] MEDS ORDERED: TRAM50TA2 PO (11:57)
[2017-03-31] MEDS: AMIODARONE HCL 900 MG in DEXTROSE 500 ML IV SCH (12:30)
[2017-03-31] MEDS: SODIUM CHLORIDE 0.9% 500 ML IV SCH (14:42)
[2017-03-31] MEDS: ATORVASTATIN 20 MG TAB PO SCH (22:01)
[2017-04-01] VITALS (19 sets, daily range): BP systolic 87–142; BP diastolic 39–86
[2017-04-01 04:00] LABS: Hematocrit 29.3 % (41.0-53.0)
[2017-04-01 04:25] LABS: Albumin 2.4 g/dL (3.4-5.0); BUN/Creatinine Ratio 23.3; Bilirubin, Total 0.4 mg/dL (0.2-1.0); Calcium 7.9 mg/dL (8.5-10.1); Magnesium 2.2 mg/dL (1.6-2.6); Potassium 4.1 mmol/L (3.5-5.1); Total Protein 6.2 g/dL (6.4-8.2)
[2017-04-01] MEDS: NICARDIPINE 25MG/250ML BAG KIT 250 ML IV SCH ×3 (04:42→13:47)
[2017-04-01] MEDS: IPRATROPIUM BROM 0.5 MG/2.5ML INH SOL NEB SCH ×3 (06:20→14:00)
[2017-04-01] MEDS: InsuLIN REG 1unit/0.01ml Soln (100units/ml) SC SCH (06:31)
[2017-04-01] MEDS: ACCU-CHEK COMFORT CURVE STRIP VI SCH (06:31)
[2017-04-01] MEDS: FUROSEMIDE 40 MG TAB PO SCH (07:09)
[2017-04-01] MEDS: FERROUS SULFATE 325 MG TAB PO SCH (08:17)
[2017-04-01] MEDS: Boost Glucose Control 8 Ounces PO SCH ×2 (08:17→11:51)
[2017-04-01] MEDS: DOCUSATE SOD 100 MG CAP PO SCH (10:00)
[2017-04-01] MEDS: ENOXAPARIN SOD 40 MG/0.4 ML SYRINGE SC SCH (10:13)
[2017-04-01] MEDS: IBUPROFEN 400 MG TAB PO SCH (10:14)
[2017-04-01] MEDS: NITROGLYCERIN 0.4MG/HR TOPICAL PATCH TD SCH (10:14)
[2017-04-01] MEDS: ASCORBIC ACID 500 MG TAB PO SCH (10:15)
[2017-04-01] MEDS: POTASSIUM CHL 10 Meq TABLET PO SCH (10:15)
[2017-04-01] MEDS: PANTOPRAZOLE 40 MG TAB PO SCH (10:15)
[2017-04-01] MEDS: AMIODARONE HCL 200 MG TAB PO SCH (10:16)
[2017-04-01] MEDS: METOPROLOL TARTRATE 25 MG TAB PO SCH (10:16)
[2017-04-01] MEDS: ASPirin 81 mg TAB PO SCH (10:17)
[2017-04-01] MEDS: CHLORHEXIDINE 0.12% ORAL rinse 473ML MT SCH (10:17)
[2017-04-01] MEDS: SODIUM CHLORIDE 0.9% 1,000 ML IV SCH (10:20)
[2017-04-01] MEDS: ACETYLCYSTEINE 10 %(100MG/ML) SOL 4ML NEB SCH (10:40)
[2017-04-01] MEDS: AMIODARONE HCL 900 MG in DEXTROSE 500 ML IV SCH (10:45)
[2017-04-01] MEDS: SODIUM CHLORIDE 0.9% 500 ML IV SCH (13:47)
== END 2017-04-01 18:45 | disposition home or self-care (01) | DRG 233 ==
LOC: ER 05:12 → TELE 05:13 → ICU WEST 03-24 01:47
PROVIDERS: ADMIT Internal Medicine; ATTEND Internal Medicine
PROC: 5A1221Z Performance of Cardiac Output, Continuous (ICD-10-PCS; 2017-03-23)
PROC: 0T9B80Z Drainage of Bladder with Drainage Device, Via Natural or Artificial Opening Endoscopic (ICD-10-PCS; 2017-03-23)
PROC: 4A023N7 Measurement of Cardiac Sampling and Pressure, Left Heart, Percutaneous Approach (ICD-10-PCS; principal; 2017-03-24)
PROC: B2111ZZ Fluoroscopy of Multiple Coronary Arteries using Low Osmolar Contrast (ICD-10-PCS; 2017-03-24)
PROC: B2151ZZ Fluoroscopy of Left Heart using Low Osmolar Contrast (ICD-10-PCS; 2017-03-24)
PROC: 02100Z9 Bypass Coronary Artery, One Artery from Left Internal Mammary, Open Approach (ICD-10-PCS; 2017-03-28)
PROC: 03B10ZZ Excision of Left Internal Mammary Artery, Open Approach (ICD-10-PCS; 2017-03-28)
PROC: 3E083GC Introduction of Other Therapeutic Substance into Heart, Percutaneous Approach (ICD-10-PCS; 2017-03-28)
PROC: 5A09357 Assistance with Respiratory Ventilation, Less than 24 Consecutive Hours, Continuous Positive Airway Pressure (ICD-10-PCS; 2017-03-30)
DX: I21.4 Non-ST elevation (NSTEMI) myocardial infarction (principal); N17.0 Acute kidney failure with tubular necrosis; I10 Essential (primary) hypertension; E78.5 Hyperlipidemia, unspecified; I25.2 Old myocardial infarction; Z82.49 Family history of ischemic heart disease and other diseases of the circulatory system; D64.9 Anemia, unspecified; I25.10 Atherosclerotic heart disease of native coronary artery without angina pectoris; I48.91 Unspecified atrial fibrillation; N36.5 Urethral false passage; R33.9 Retention of urine, unspecified; Z80.0 Family history of malignant neoplasm of digestive organs; Z95.1 Presence of aortocoronary bypass graft; Z71.89 Other specified counseling; R73.9 Hyperglycemia, unspecified; N35.9 Urethral stricture, unspecified
CPT/HCPCS: 10022; 36415; 36600; 71010; 71020; 76942; 80048; 80053; 80061; 80307; 81001; 82550; 82805; 82962; 83036; 83735; 84100; 84132; 84484; 85007; 85014; 85018; 85025; 85027; 85576; 85610; 85652; 85730; 86141; 86850; 86900; 86901; 86920; 87070; 87081; 87205; 93005; 93306; 93458; 93886; 93926; 94002; 94003; 94640; 94660; 94761; 96361; 96372; 96374; 99152; C1729; C1751; C1768; C9113; J0153; J0330; J0610; J0690; J1100; J1642; J1644; J1815; J1885; J2250; J2440; J2704; J3010; J3480; J7060